=== PATIENT | female | born 1935 ===

== ENCOUNTER 2017-12-14 10:03 | Day surgery (SDC) | payer OTHER ==
[~2017-12-14 10:03] MED LIST: ASA325 MG PO; SYNTHROID50 MCG PO; ZOCOR40 MG PO; ZOLOFT50 MG PO
[2017-12-14] MEDS ORDERED: MACROBID 100 M100 MG PO (16:16)
[2017-12-14] MEDS ORDERED: ULTRACET PO (16:17)
== END 2017-12-14 19:15 | disposition home or self-care (01) ==
LOC: CIR.AMB 10:03
DX: N81.3 Complete uterovaginal prolapse (principal)